=== PATIENT | female | born 1940 | race Caucasian/White ===

== ENCOUNTER → 2016-11-15 | Day surgery (SDC) | payer BC, OTHER ==
--- NOTE | 2016-11-04 11:43 | PAT Medication Instructions ---
Service Date Nov 04, 2016. Current Home Medication List Aspirin (Ecotrin Low Strength), 1 TAB PO HS Multivitamin (Multivitamin), 1 TAB PO QAM Naproxen (Aleve), 440 MG PO BID Sennosides-Docusate Sodium (Stool Softener), 1 TAB PO QAM Simvastatin (Zocor), 1 TAB PO HS Medication Instructions For Your Scheduled Surgery - Hold the following medications 1 week prior to surgery per surgeon's instructions: Naproxen (Aleve), 440 MG PO BID - Hold the following medications the morning of surgery: Sennosides-Docusate Sodium (Stool Softener), 1 TAB PO QAM Multivitamin (Multivitamin), 1 TAB PO QAM - Take the following medications as scheduled the night before surgery: Aspirin (Ecotrin Low Strength), 1 TAB PO HS Simvastatin (Zocor), 1 TAB PO HS *Nothing to eat or drink after midnight If you have any questions please call us at [phone] or [phone] or [phone]
[2016-11-04 11:56] LABS: URINE APPEARANCE CLOUDY (CLEAR); URINE BILIRUBIN NEG (NEG); URINE COLOR YELLOW; URINE NITRITE POS (NEG); URINE PH 5.5 (4.5-7.5); URINE SPECIFIC GRAVITY 1.019 (1.000-1.030); UROBILINOGEN NEG (NEG); ZZUR CULT IF INDIC CLEAN CATCH YES
[2016-11-04 12:03] LABS: MANUAL MICROSCOPIC REQUIRED? NO; REVIEW REQ? NO
--- NOTE | 2016-11-04 12:10 | DIAGNOSTIC IMAGING REPORT ---
TWO VIEW CHEST CLINICAL HISTORY: Preoperative examination. FINDINGS: PA and lateral chest radiographs are obtained. No prior studies are available for comparison at the time of dictation. The heart is top normal for projection. The pulmonary vasculature is noncongested. A large hiatal hernia is observed and there is bibasilar atelectasis. Nonspecific interstitial thickening is noted. No airspace consolidation is seen typical for pneumonia and there is no pleural effusion. There is no pneumothorax. The skeletal structures are osteopenic. The bony thorax appears intact. Degenerative change is noted throughout the spine. IMPRESSION: 1. No active disease in the chest. 2. Large hiatal hernia. Electronically signed by: Jose Rafael Deng M.D. 11/04/2016 12:09 PM Dictated Date/Time: 11/04/2016 12:08 PM
[2016-11-04 12:29] LABS: PARTIAL THROMBOPLASTIN RATIO 0.9; PROTHROMBIN TIME (PATIENT) 10.5 SECONDS (9.0-12.0)
--- NOTE | 2016-11-11 08:51 | HISTORY & PHYSICAL EXAMINATION ---
DATE OF ADMISSION: 11/15/2016 CHIEF COMPLAINT: Right hip pain. HISTORY OF PRESENT ILLNESS: Ms. Gu is a 76-year-old female with a 6-month history of right hip pain. She rates her pain a 9/10. She has pain with her daily activities. She has limited standing and walking tolerance. Pain is worse with weightbearing. The patient uses a cane to ambulate. She takes Aleve and does home exercise program. She has failed injections. She has failed conservative treatment and is scheduled for right hip replacement. PAST MEDICAL HISTORY: Hypercholesterolemia. She denies heart disease, diabetes or DVT. PAST SURGICAL HISTORY: Bilateral total knee arthroplasty, cataract extraction bilateral. SOCIAL HISTORY: She denies alcohol or tobacco use. She lives in a 2-story home. She is and lives alone. She is retired. FAMILY HISTORY: Negative for DVT. MEDICATIONS: Zocor 10 mg daily, Ecotrin 81 mg daily, Aleve p.r.n., stool softener 100 mg daily, and multivitamin 1 daily. ALLERGIES: None. REVIEW OF SYSTEMS: See HPI. Ten other systems reviewed, all negative. PHYSICAL EXAMINATION: VITAL SIGNS: Height 5 foot 4 inches, weight 164 pounds, BMI is 28. GENERAL: This is a well-developed, well-nourished female who is alert and oriented x3. Mood and affect are appropriate. HEAD, EYES, EARS, NOSE, AND THROAT: Normocephalic, atraumatic. Mucous membranes are moist and intact. NECK: Supple without lymphadenopathy. HEART: Regular rate and rhythm without murmurs, rubs or gallops. LUNGS: Clear to auscultation without wheezes or rhonchi. ABDOMEN: Soft and nontender. Bowel sounds are equal and active. EXTREMITIES: No ecchymosis, redness or warmth. Log roll of the hip reproduces pain in the groin. She is neurovascularly intact with +5/5 strength. She walks with an antalgic gait. X-RAY EXAMINATION: AP and lateral views show joint space narrowing and osteophyte formation. IMPRESSION: Degenerative joint disease, right hip. PLAN: The patient will be admitted for a right total hip arthroplasty. We will plan on aspirin for DVT prophylaxis. She will have [facility] for home physical therapy and her PCP is Dr. Roberto in [place].
[~2016-11-15] VITALS: Ht 162.6 cm; Wt 72.9 kg
[~2016-11-15] MED LIST: ACETAMINOPHEN 500 MG TAB PO SCH; ASPI-428 PO; CEFAZOLIN 2000 MG/60 ML D5W 60 ML IV SCH; CeleBREX 200 MG CAP PO SCH; DEXAMETHASONE 4 MG TAB PO SCH; FAMOTIDINE 20 MG TAB PO SCH; FENTANYL CITRATE INJ 50 MCG/1 ML 2 ML VIAL ONE; GABAPENTIN 300 MG CAP PO SCH; LACTATED RINGER'S 1000ML 1,000 ML IV SCH; LACTATED RINGER'S 1000ML 500 ML IV ONE; METOCLOPRAMIDE HCL 10 MG TAB PO SCH; METOPROLOL TARTRATE 1 MG/ML VIAL IV STA; METOPROLOL TARTRATE 1 MG/ML VIAL ONE; MIDAZOLAM HCL 1 MG/ML 2ML VIAL ONE; MULT-506 PO; NAPR1TAB9 PO; POLYMYXIN B SULFATE 100,000 UNITS in NSS 100ML IR SCH; ROPIVACAINE 5MG/ML 30 ML 150 MG, BUPIVACAINE/EPINEPHR 0.5% MPF 30 ML, KETOROLAC TROMETH... INFIL SCH; SENNTAB23 PO; SIMV10TA2 PO; TRAMADOL HCL 50 MG TAB PO SCH; TRANEXAMIC ACID INJ 1,000 MG in SODIUM CHLORIDE 0.9% 100ML 100 ML IV SCH; VANCOMYCIN INJ 400 MG in NSS 100ML IR SCH
[2016-11-15 07:41] VITALS: Ht 162.6 cm; Wt 72.9 kg
[2016-11-15 08:19] LABS: CALCIUM 8.8 mg/dl (8.5-10.1); MAGNESIUM 2.3 mg/dl (1.8-2.4); POTASSIUM 4.1 mmol/L (3.5-5.1)
--- NOTE | 2016-11-15 08:22 | Progress Note ---
Progress Note Date of Service Nov 15, 2016. Progress Note Pt schedule for R RAEGAN by Dr. Garnett today but was found to be in a. fib. w/ RVR which is apparently new onset. BP stable. Pt w/ some mild palpitations. IV metoprolol given. Labs drawn. Dr. Garnett and I agreed to cancel the case for today. He asked for Cardiology to see the pt. I consulted Dr. Dumont and spoke to him on the phone.
[2016-11-15 08:50] VITALS: BP 113/77; PULSE 67; O2SAT 92
--- NOTE | 2016-11-15 11:06 | CARDIOLOGY CONSULTATION ---
DATE OF CONSULTATION: 11/15/2016 REFERRING PHYSICIAN: Danny Garnett MD. CHIEF COMPLAINT: Atrial fibrillation. HISTORY OF PRESENT ILLNESS: Mrs. Estela Gu is a 76-year-old woman without a known cardiac history, who presented for routine right hip replacement. She was noted in the perioperative area to have a rapid heartbeat and an EKG confirmed an arrhythmia suggestive of atrial fibrillation. Based on the nature of arrhythmia and the previously undocumented nature of this problem, her surgery was cancelled and we were asked to evaluate. The patient states that this morning during her preoperative evaluation, she did notice a sense of fluttering and perhaps an element of tachycardia. This is similar to episodes she has intermittently. Prior to today; however, the episodes had been very brief in nature, generally lasting less than a minute, many times even seconds in duration. Outside of the sense of palpitations this morning, the patient denied other symptoms such as, dyspnea or chest discomfort. She did not report significant dizziness or lightheadedness. She had some symptoms of anxiety leading up to her surgery today, but otherwise has been feeling well. In general, the patient is an active individual, who is currently limited by right hip pain. She is accustomed to exercising and walking, but this has been difficult for the past 5 months. She has tried conservative therapy and presents today for hip replacement due to persistent pain and its effect on her activity. With respect to her brief episodes of palpitations, these are intermittent in nature, very brief and infrequent. They are not associated with symptoms such as, dizziness or lightheadedness. She denies any symptoms of exertional chest discomfort or limiting dyspnea. She denies orthopnea or paroxysmal nocturnal dyspnea. She has not suffered a syncopal episode recently. PAST MEDICAL HISTORY: Significant for: 1. Degenerative joint disease having previously undergone knee replacement. 2. Cataracts. 3. Hyperlipidemia. PAST SURGICAL HISTORY: Includes, bilaterally total knee arthroscopy, and bilateral catheter surgery. OUTPATIENT MEDICATIONS: Include, simvastatin 10 mg daily, a daily aspirin and stool softener. MEDICAL ALLERGIES: None. FAMILY HISTORY: Not significant for premature coronary disease or frequent syncope. SOCIAL HISTORY: The patient is . She currently lives alone. She denies significant alcohol or tobacco use. REVIEW OF SYSTEMS: A complete review of systems was performed, the pertinent positives are noted in the history of present illness. The remainder being negative. She denies any difficulty with eating or drinking recently. No notable changes in her stool. She denies melena or hematochezia. She has not had any bright-red blood per rectum. She had previously been on anticoagulation after her knee replacement and denied any trouble with anticoagulation such as, bleeding. Outside of mild anxiety leading up to today's surgery, she claims to have been feeling well. PHYSICAL EXAMINATION: GENERAL: The patient does not appear to be in any acute distress. She is a pleasant individual who is alert and oriented. Mood and affect appear normal. She answered all questions appropriately. CURRENT VITAL SIGNS: Include blood pressure of 113/77 with a pulse of 67. HEENT: Her sclerae were anicteric. Extraocular movements were intact. Palpation of submandibular region did not reveal any significant lymphadenopathy. The carotids are palpable bilaterally. There are no bruits on auscultation. I do not appreciate any jugular venous distention. There is no thyromegaly. NEUROLOGIC: Revealed the cranial nerves to be intact. LUNGS: Auscultation of both lung gonzales reveal them to be clear. There were no rales, wheezes or rhonchi. She had normal respiratory effort without use of accessory muscles. CARDIAC: Revealed her to be in a regular rhythm. S1 and S2 were normal. There were no murmurs on examination. The PMI was not markedly displaced on palpation. ABDOMEN: Soft and nontender. EXTREMITIES: Evaluation of both wrists revealed the radial pulses to be equal in intensity. There is no evidence of cyanosis or clubbing. Evaluation of lower extremities did not reveal any evidence of peripheral edema. She had an SCD on the left leg. There were no rashes appreciated on exam today. OUTPATIENT LABORATORY STUDIES: Were available for review. The patient had a white cell count of 7.5, hemoglobin of 14, and platelet count of 281. Sodium was 142, potassium is 4.3, BUN was 17, creatinine was 0.92. IMAGING DATA: A 12-lead EKG was obtained today, which revealed the patient to be in atrial fibrillation with rapid ventricular response. There was evidence of ST-segment changes concerning for ischemia, but also possibly rate-related as compared to an outpatient EKG which revealed normal sinus rhythm with a PVC. ASSESSMENT AND PLAN: 1. Atrial fibrillation, paroxysmal. The patient had some symptoms of palpitation associated with her arrhythmia and elevated ventricular rate. Whether she has had these symptoms intermittently over the past several years is unclear. This is the first documented episode by report. This may be related to the anxiety of her surgery associated with relatively dehydrated state. In any event, she will require some standard testing which would include, echocardiography and management of her thyroid function. Risk factors for atrial fibrillation simply include her age. She does not have hypertension. She does not describe symptoms consistent with obstructive sleep apnea. She is not obese and she is not on medication for osteoporosis. The patient's episode was fairly well tolerated, although she was seated at the time. It is unclear if she would have more symptoms had she been up and active. I think, at this juncture, a standard recommendation in addition to the aforementioned diagnostic studies would simply be initiation of beta blockade with a daily dose of metoprolol and a discussion regarding anticoagulation. Her CHADS-VASc score is at least 3 based on her age and gender and she should undergo systemic anticoagulation for this episode which lasted over 6 minutes. She appears to be on warfarin and this will be a good choice. For convenience purposes, she seems to be a good candidate for Novel oral anticoagulants as well. The timing of anticoagulation can be discussed. If she is likely to have her hip surgery in the next 1 or 2 weeks, anticoagulation could be deferred until afterwards. If there is going to be a longer period before she is able to undergo surgery, then initiation at this time may be considered. FINAL RECOMMENDATIONS: 1. Echocardiogram. 2. Follow up with cardiology. 3. Serum studies to include thyroid panel. 4. Recommend initiation of anticoagulation depending on timing of her hip surgery.
== END | disposition home or self-care (01) ==
LOC: C.ACU 06:49
PROVIDERS: ATTEND Orthopaedic Surgery
DX: M16.11 Unilateral primary osteoarthritis, right hip (principal); Z53.09 Procedure and treatment not carried out because of other contraindication